=== PATIENT | male | born 1955 | race Caucasian/White ===

== ENCOUNTER 2016-07-15 15:36 | Emergency (ER) | payer OTHER ==
[2016-07-15 16:51] LABS: BASOPHIL 0.1 % (0-2); EOSINOPHIL 1.8 % (0-5); HCT 41.9 % (42.0-52.0); HGB 14.6 g/dl (13.2-18.0); LYMPHOCYTE 35.7 % (15-48); MCHC 34.8 g/dL (32.0-36.0); MCV 83.1 fL (78.0-100.0); MONOCYTE 7.3 % (0-12); MPV 11.8 fL (6.0-9.5); NEUTROPHIL 55.1 % (41-80); PLT 174 K/uL (150-400); RBC 5.04 M/uL (4.70-6.00); RDW 12.9 % (11.5-14.0); WBC 7.6 K/uL (4.0-10.5)
[2016-07-15 17:19] LABS: CREATININE 0.8 mg/dL (0.7-1.2); POTASSIUM 4.2 mmol/L (3.5-5.1)
== END 2016-07-15 18:15 | disposition home or self-care (01) ==
LOC: FER 15:36
PROVIDERS: Nurse Practitioner
DX: S06.0X0A Concussion without loss of consciousness, initial encounter (principal); E11.9 Type 2 diabetes mellitus without complications; Z79.4 Long term (current) use of insulin; W22.8XXA Striking against or struck by other objects, initial encounter; Y92.69 Other specified industrial and construction area as the place of occurrence of the external cause; Y99.0 Civilian activity done for income or pay
CPT/HCPCS: 36415; 70450; 80048; 85025; 87450; 87804; 87899; 93005

== ENCOUNTER 2016-09-29 07:18 | Emergency (ER) | payer OTHER | END 2016-09-29 08:49 | disposition home or self-care (01) | LOC: FER 07:18 | DX: S93.491A Sprain of other ligament of right ankle, initial encounter (principal); E11.9 Type 2 diabetes mellitus without complications; Z79.4 Long term (current) use of insulin; W19.XXXA Unspecified fall, initial encounter; Y92.096 Garden or yard of other non-institutional residence as the place of occurrence of the external cause | CPT/HCPCS: 73610; 73630; J1885 ==

== ENCOUNTER 2020-06-19 23:14 | Emergency (ER) | payer OTHER ==
[~2020-06-19 23:14] MED LIST: MEDROL 4MG DOSEP4 MG PO; NORCO 5-325 TA1 EACH PO
[2020-06-20 02:07] LABS: BASOPHIL 0.2 % (0-2); EOSINOPHIL 2.5 % (0-5); HCT 39.1 % (42.0-52.0); HGB 12.9 g/dl (13.2-18.0); LYMPHOCYTE 27.4 % (15-48); MCH 28.7 pg (25.0-31.0); MCV 87.1 fL (78.0-100.0); MONOCYTE 9.9 % (0-12); MPV 11.2 fL (6.0-9.5); NEUTROPHIL 59.8 % (41-80); NRBC 0; PLT 194 K/uL (150-400); RBC 4.49 M/uL (4.70-6.00); RDW 12.8 % (11.5-14.0); WBC 9.1 K/uL (4.0-10.5)
[2020-06-20 02:26] LABS: ALBUMIN 3.1 g/dL (3.4-5.0); BILIRUBIN - TOTAL 0.5 mg/dL (0.2-1.0); BUN/CREAT RATIO (CALC) 14.8 RATIO; CREATININE 0.88 mg/dL (0.67-1.17); GLOBULIN (CALCULATION) 3.3 g/dL; POTASSIUM 3.3 mmol/L (3.5-5.1); TOTAL PROTEIN 6.4 g/dL (6.4-8.2)
[2020-06-20 02:28] LABS: INR 1.02 (0.9-1.2); PROTHROMBIN TIME 12.7 SECONDS (11.4-13.6); PTT 33.3 SECONDS (22.2-34.7)
[2020-06-20] MEDS ORDERED: LISINOPRIL-HCT1 EAC2 PO (06:51)
== END 2020-06-20 07:00 | disposition home or self-care (01) ==
LOC: FER 23:14
PROVIDERS: Emergency Medicine Emergency Medical Services
DX: I11.9 Hypertensive heart disease without heart failure (principal); R06.02 Shortness of breath; R00.1 Bradycardia, unspecified; E11.9 Type 2 diabetes mellitus without complications; Z79.4 Long term (current) use of insulin; G89.29 Other chronic pain; Z79.891 Long term (current) use of opiate analgesic
CPT/HCPCS: 36415; 71045; 80053; 83880; 84145; 84484; 85025; 85610; 85730; 93005; J0360; J1885; J1940; J2930

== ENCOUNTER 2020-10-26 09:59 | Emergency (ER) | payer OTHER ==
[~2020-10-26 09:59] MED LIST changes: +LISINOPRIL-HCT1 EAC2 PO
[2020-10-26 10:44] LABS: ALBUMIN 3.3 g/dL (3.4-5.0); ALKALINE PHOSHATASE 43 U/L (46-116); ALT 28 U/L (16-63); AST 16 U/L (15-37); BILIRUBIN - TOTAL 0.5 mg/dL (0.2-1.0); BUN 17 mg/dL (7-18); BUN/CREAT RATIO (CALC) 16.2 RATIO; CHLORIDE 106 mmol/L (98-107); CO2 (BICARBONATE) 24 mmol/L (21-32); CREATININE 1.05 mg/dL (0.67-1.17); GLOBULIN (CALCULATION) 3.1 g/dL; GLUCOSE 248 mg/dL (74-106); POTASSIUM 3.6 mmol/L (3.5-5.1); TOTAL PROTEIN 6.4 g/dL (6.4-8.2)
[2020-10-26 10:56] LABS: BASOPHIL 0.2 % (0-2); EOSINOPHIL 0.7 % (0-5); HCT 37.1 % (42.0-52.0); LYMPHOCYTE 25.2 % (15-48); MCH 29.1 pg (25.0-31.0); MONOCYTE 6.2 % (0-12); NEUTROPHIL 66.5 % (41-80); NRBC 0; PLT 227 K/uL (150-400); RBC 4.47 M/uL (4.70-6.00); RDW 12.9 % (11.5-14.0)
[2020-10-26 11:51] LABS: BILIRUBIN NEGATIVE (NEGATIVE); BLOOD NEGATIVE Ery/uL (NEGATIVE); CLARITY CLEAR (CLEAR); COLOR YELLOW (YELLOW); GLUCOSE (U) 3+ mg/dL (NORMAL); LEUKOCYTES NEGATIVE Leu/uL (NEGATIVE); NITRITE NEGATIVE (NEGATIVE); PROTEIN 3+ mg/dL (NEGATIVE); UROBILINOGEN 0.2 mg/dL (0.2-1.0)
[2020-10-26 12:00] LABS: AMPHETAMINES NEGATIVE (NEGATIVE); BARBITURATES NEGATIVE (NEGATIVE); ECSTASY (MDMA) NEGATIVE (NEGATIVE); MARIJUANA (THC) NEGATIVE (NEGATIVE); METHADONE NEGATIVE (NEGATIVE); OPIATES POSITIVE (NEGATIVE); OXYCODONE NEGATIVE (NEGATIVE)
[2020-10-26 12:26] LABS: SQUAMOUS EPITHELIAL CELLS RARE; URINARY RBC RARE; URINARY WBC RARE
[2020-10-26] MEDS ORDERED: ANTIVERT25 MG PO (13:41)
== END 2020-10-26 14:24 | disposition home or self-care (01) ==
LOC: FER 09:59
PROVIDERS: Emergency Medicine
DX: R42 Dizziness and giddiness (principal); R53.1 Weakness; E11.9 Type 2 diabetes mellitus without complications; I10 Essential (primary) hypertension; Z87.891 Personal history of nicotine dependence; Z20.822 Contact with and (suspected) exposure to COVID-19
CPT/HCPCS: 36415; 70450; 71045; 80053; 80305; 81001; 84484; 85025; 93005; G0480; J7030; U0002

== ENCOUNTER 2021-06-12 12:04 | Emergency (ER) | payer OTHER ==
[~2021-06-12 12:04] MED LIST changes: +ANTIVERT25 MG PO
[2021-06-12 13:00] LABS: BASOPHIL 0.2 % (0-2); EOSINOPHIL 3.8 % (0-5); HCT 38.7 % (42.0-52.0); LYMPHOCYTE 30.6 % (15-48); MCH 28.1 pg (25.0-31.0); MCHC 33.6 g/dL (32.0-36.0); MCV 83.8 fL (78.0-100.0); MPV 10.9 fL (6.0-9.5); NEUTROPHIL 55.2 % (41-80); NRBC 0; PLT 220 K/uL (150-400); RBC 4.62 M/uL (4.70-6.00); RDW 13.5 % (11.5-14.0); WBC 8.7 K/uL (4.0-10.5)
[2021-06-12 13:08] LABS: INR 0.96 (0.9-1.2); PROTHROMBIN TIME 12.2 SECONDS (11.8-13.4)
[2021-06-12 13:24] LABS: ALBUMIN 2.9 g/dL (3.4-5.0); BILIRUBIN - TOTAL 0.3 mg/dL (0.2-1.0); BUN/CREAT RATIO (CALC) 14.6 RATIO; CREATININE 0.96 mg/dL (0.67-1.17); GLOBULIN (CALCULATION) 3.4 g/dL; POTASSIUM 3.4 mmol/L (3.5-5.1); TOTAL PROTEIN 6.3 g/dL (6.4-8.2)
== END 2021-06-12 16:18 | disposition home or self-care (01) ==
LOC: FER 12:04
PROVIDERS: Physician Assistant
DX: R07.9 Chest pain, unspecified (principal); I10 Essential (primary) hypertension; E11.9 Type 2 diabetes mellitus without complications; Z79.4 Long term (current) use of insulin; Z79.899 Other long term (current) drug therapy
CPT/HCPCS: 36415; 71046; 80053; 83880; 84484; 85025; 85610; 93005